=== PATIENT | male | born 1990 | race Caucasian/White ===

== ENCOUNTER 2024-08-15 19:20 | Emergency (ER) | payer BC ==
[2024-08-15 19:29] VITALS: BP 177/106; PULSE 94
[2024-08-15] MEDS: Diphtheria,Pertussis(Acell),Tetanus Vaccine 0.5 ML Syringe IM ONE (20:05)
== END 2024-08-15 20:06 | disposition home or self-care (01) ==
LOC: MW.ED 19:20
DX: S91.332A Puncture wound without foreign body, left foot, initial encounter (principal); I10 Essential (primary) hypertension; E11.9 Type 2 diabetes mellitus without complications; F17.200 Nicotine dependence, unspecified, uncomplicated; J45.909 Unspecified asthma, uncomplicated; Z91.013 Allergy to seafood; Z91.048 Other nonmedicinal substance allergy status; Z79.51 Long term (current) use of inhaled steroids; W45.0XXA Nail entering through skin, initial encounter
CPT/HCPCS: 90471; 90715; 99283-25

== ENCOUNTER 2024-09-05 10:12 | Emergency (ER) | payer BC ==
[2024-09-05 10:49] VITALS: BP 169/101
[2024-09-05] MEDS: Ketorolac 30 MG/ML SDV IM ONE (11:30)
[2024-09-05 12:00] VITALS: PULSE 64
== END 2024-09-05 11:34 | disposition home or self-care (01) ==
LOC: MW.ED 10:12
DX: L02.612 Cutaneous abscess of left foot (principal); I10 Essential (primary) hypertension; E11.9 Type 2 diabetes mellitus without complications; Z75.3 Unavailability and inaccessibility of health-care facilities; Z91.013 Allergy to seafood; Z91.09 Other allergy status, other than to drugs and biological substances; Z79.899 Other long term (current) drug therapy
CPT/HCPCS: 10060; 96372; 99283; A9270; J1885; J2003; 10061